=== PATIENT | male | born 1995 | race Caucasian/White ===

== ENCOUNTER 2021-07-16 14:12 | Emergency (ER) | payer SELFPAY ==
[~2021-07-16] VITALS: Ht 177.8 cm; Wt 80.7 kg
--- NOTE | 2021-07-16 14:25 | NUR ---
yoandy, had seizure episode in the parking lot lasted 2 mins, witnessed by friend, no oral trauma or injury, bs 108,last fentanyl 6 days ago. On room air, breathing evenly and unlabored. Connected to the monitor and pulse ox. Kept comfortable, will continue to monitor accordingly.
--- NOTE | 2021-07-16 14:46 | NUR ---
PT REFUSING CT SCAN OF THE HEAD, IS AWARE
--- NOTE | 2021-07-16 15:20 | NUR ---
THE PATIENT REFUSES SALINE LOCKED, BLOOD WORK, CT DESPITE EXPLAINING RISKS AND BENEFITS. THE PATIENT STATES THAT HE DOES NOT WANT ANYTHING TO BE DONE AND REQUESTING TO AMA. DR GAMINO AWARE.
--- NOTE | 2021-07-16 15:32 | NUR ---
Patient does not wish to proceed with medical care recommended by Dr. Ch. Patient given information related to possible complications, up to and including , which could occur as a result of leaving the hospital at this time. Patient verbalizes understanding of risks involved due to leaving against medical advice. Patient has signed AMA form.
[2021-07-16 15:33] VITALS: BP 137/75
== END 2021-07-16 15:33 | disposition left against medical advice (07) ==
LOC: ER 14:23
DX: G40.909 Epilepsy, unspecified, not intractable, without status epilepticus (principal)